=== PATIENT | male | born 1935 | race Caucasian/White ===

== ENCOUNTER 2016-04-10 07:12 | Emergency (ER) | payer OTHER, MEDICARE ==
[~2016-04-10] VITALS: Ht 186.7 cm; Wt 88.5 kg
[~2016-04-10 07:12] MED LIST: ASPIRIN EC81 M1 PO; ATORVASTATIN CA40 M1 PO; EFFIENT10 M1 PO; FISH OIL 1,0001 EACH PO; HEPARIN-1/25000 UNI1 IV; METOPROLOL SUCC25 M1 PO; NIASPAN1000 M1 PO; NTG 25 MG/25 MG/250 IV; SYNTHROID75 MCG PO; VITAMIN C500 M7 PO; ZETIA10 M1 PO
--- NOTE | 2016-04-10 07:22 | ED SKIN/ALLERGY COMPLAINT ---
History of Present Illness General Chief Complaint: General Adult Stated Complaint: BIOPSY DONE ON EXCESSIVE BLEEDING Source: patient Exam Limitations: no limitations Vital Signs & Intake/Output Vital Signs & Intake/Output Vital Signs Date Time Temp Pulse Resp B/P Pulse O2 O2 Flow FiO2 Ox Delivery Rate 04/10 0720 98 Room Air 04/10 0715 97.2 66 18 160/80 100 Room Air Allergies Coded Allergies: rosuvastatin (RASH 05/10/15) Reconcile Medications Alirocumab (Praluent Pen) 75 MG/ML PEN.INJCTR 1 INJ SC Q 2 WEEKS CHOLESTEROL (Reported) Ascorbic Acid (Vitamin C) 500 MG CAPSULE.ER 1 CAP PO DAILY SUPPLEMENT ( Reported) Aspirin (Ecotrin*) 81 MG TABLET.DR 1 TAB PO DAILY HEART HEALTH (Reported) Atorvastatin Calcium 40 MG TABLET 1 TAB PO QPM CHOLESTEROL (Reported) Ezetimibe (Zetia) 10 MG TABLET 1 TAB PO DAILY CHOLESTEROL (Reported) Levothyroxine Sodium (Synthroid) 75 MCG TABLET 1 TAB PO DAILY AC THYROID ( Reported) Metoprolol Succinate 25 MG TAB.ER.24H 1 TAB PO DAILY HEART (Reported) Niacin (Niaspan) 1,000 MG TAB.ER.24H 2 TAB PO QPM HEART (Reported) [place]-3 Fatty Acids/Fish Oil (Fish Oil 1,000 MG Capsule) 1 EACH CAPSULE 2 CAP PO DAILY SUPPLEMENT (Reported) Prasugrel HCl (Effient) 10 MG TABLET 1 TAB PO DAILY BLOOD THINNER (Reported) Triage Note: PT STATES THAT HE HAD A MOLE BIOPSIED ON THURSDAY ON HIS R [place] AND THAT HE HAS NOTED THERE HAS BEEN A LOT OF BLEEDING TO AREA. DENIES PAIN. PT NOTED WITH BANDAID TO THE AREA Triage Nurses Notes Reviewed? yes HPI: pt presents for eval of bleeding from a bx site after mole removal on . pt states has had excisional bx in past. the bleeding seems excessive. takes aspirin daily. no other c/o such as dizziness or chest pain. Past History Travel History Traveled to [place] past 21 day No Medical History Any Pertinent Medical History? 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 No Review of Systems Review of Systems Constitutional: Reports: no symptoms. EENTM: Reports: no symptoms. Respiratory: Reports: no symptoms. Cardiovascular: Reports: no symptoms. GI: Reports: no symptoms. Genitourinary: Reports: no symptoms. Musculoskeletal: Reports: no symptoms. Skin: Reports: see HPI. Neurological/Psychological: Reports: no symptoms. Hematologic/Endocrine: Reports: no symptoms. Immunologic/Allergic: Reports: no symptoms. All Other Systems: Reviewed and Negative Physical Exam Physical Exam General Appearance: see below Comments: Gen.: Well-nourished, well-developed, no acute respiratory distress. Head: Normocephalic, atraumatic.bx site without active bleeding. Eyes: Normal inspection bilaterally Ears: Normal inspection bilaterally Nose: Normal inspection Throat/mouth : Moist mucosa Neck: Supple, full range of motion, no goiter Lungs: Quiet respirations Back: Normal range of motion Extremities: Normal range of motion grossly, equal radial pulses, no cyanosis clubbing or edema Neurologic: Cranial nerves grossly intact, speech is clear Skin: warm and dry Psychiatric: Calm, cooperative, no apparent delusions or hallucinations Progress Differential Diagnosis: postprocedural bleeding Plan of Care: Wound care Comments: 04/10/2016 8:26:31 AM no further bleeding after silver nitrate cautery. Departure Departure Disposition: HOME OR SELF CARE Condition: Stable Clinical Impression Primary Impression: Bleeding from wound Referrals: PADMINI CARRILLO,ISIDRA Shah (PCP/Family) Additional Instructions: Return if any concerns or sudden worsening. Departure Forms: Customer Survey General Discharge Information
[2016-04-10] MEDS ORDERED: PRALUENT P75 MG/1 ML SC (07:48)
[2016-04-10 08:37] VITALS: BP 142/72
== END 2016-04-10 08:38 ==
LOC: ERH 07:12
DX: L76.21 Postprocedural hemorrhage of skin and subcutaneous tissue following a dermatologic procedure (principal)

== ENCOUNTER 2016-08-26 13:50 | Emergency (ER) | payer OTHER, MEDICARE ==
[~2016-08-26] VITALS: Ht 186.7 cm; Wt 90.7 kg
[~2016-08-26 13:50] MED LIST changes: +PRALUENT P75 MG/1 ML SC
--- NOTE | 2016-08-26 15:01 | ED GENERAL ADULT ---
History of Present Illness General Chief Complaint: Male Genitourinary Problems Stated Complaint: BLOOD IN URINE Source: patient Exam Limitations: no limitations Vital Signs & Intake/Output Vital Signs & Intake/Output Vital Signs Date Time Temp Pulse Resp B/P B/P Pulse O2 O2 Flow FiO2 Mean Ox Delivery Rate 08/26 1531 56 18 136/64 98 Room Air 08/26 1407 98.1 61 20 138/76 97 Room Air Room Air Allergies Coded Allergies: ranolazine (From RANEXA) (PSYCHIDELLIC VISIONS PER PT 08/26/16) rosuvastatin (RASH 05/10/15) Reconcile Medications Alirocumab (Praluent Pen) 75 MG/ML PEN.INJCTR 1 INJ SC Q 2 WEEKS CHOLESTEROL (Reported) Ascorbic Acid (Vitamin C) 500 MG CAPSULE.ER 1 CAP PO DAILY SUPPLEMENT ( Reported) Aspirin (Ecotrin*) 81 MG TABLET.DR 1 TAB PO DAILY HEART HEALTH (Reported) Atorvastatin Calcium 40 MG TABLET 1 TAB PO QPM CHOLESTEROL (Reported) Levothyroxine Sodium (Synthroid) 75 MCG TABLET 1 TAB PO DAILY AC THYROID ( Reported) Metoprolol Succinate 25 MG TAB.ER.24H 1 TAB PO DAILY HEART (Reported) Niacin (Niaspan) 1,000 MG TAB.ER.24H 2 TAB PO QPM HEART (Reported) Nitroglycerin (Nitro-Bid) 2 % OINT...G. 1 MARI TOP DAILY HEART (Reported) [place]-3 Fatty Acids/Fish Oil (Fish Oil 1,000 MG Capsule) 1 EACH CAPSULE 2 CAP PO DAILY SUPPLEMENT (Reported) Prasugrel HCl (Effient) 10 MG TABLET 1 TAB PO DAILY BLOOD THINNER (Reported) Ubidecarenone (Co Q-10) 50 MG CAPSULE 1 CAP PO DAILY SUPPLEMENT (Reported) Triage Note: PT TO ED WITH C/O BLOODY URINE TODAY "FELT FINE THIS AM, MOVED BOWELS FINE, NO PAIN". ON BABY ASA. Triage Nurses Notes Reviewed? yes Onset: Gradual Duration: day(s): (1) Timing: no prior history Injury Environment: home Severity: moderate No Modifying Factors: none Associated Symptoms: none HPI: Patient is a 80-year-old male presenting to the emergency department with chief complaint of bleeding from his penis that happened just prior to arrival. Patient reports that he was sitting down and had to urinate so he went to the bathroom, sat on the toilet and noticed that there was blood in his underwear. Patient denies any associated pain. Denies any abdominal pain. No nausea vomiting fevers or chills chest pain or shortness of breath. He does report remote history of smoking. No history of similar symptoms. Denies any urinary frequency urgency or dysuria. He did notice that when he provided a urine specimen here in the emergency department a small blood clot came out of his urethra. No pain associated with it. Denies taking anything at home to help with symptoms. Denies any weight changes. No recent travel. No sick contacts. Denies any trauma. (URI GALO) Past History Travel History Traveled to [place] past 21 day No Medical History Any Pertinent Medical History? 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 No (URI GALO) Review of Systems Review of Systems Constitutional: Reports: no symptoms. Comments Review of systems: See HPI, All other systems negative. Constitutional, no chills fever or weight loss HEENT: No visual changes no sore throat no congestion Cardiovascular: No chest pain ,palpitation , orthopnea or ankle swelling Skin, no jaundice no rashes Respiratory: No dyspnea cough sputum or hemoptysis GI: No nausea no vomiting : No dysuria Muscle skeletal: no back pain, no neck pain, Neurologic: No numbness no confusion no jackson Psych: No stress anxiety or depression,. Heme/endocrine: No bruising no bleeding no polyuria or polydipsia Immunology: No splenectomy or history of AIDS (URI GALO) Physical Exam Physical Exam General Appearance: well developed/nourished, no apparent distress, alert, awake , comfortable Comments: Well-developed well-nourished person in no acute distress HEENT: atruamatic. Nose is atraumatic. Neck: normal inspection Back: Nontender, no CVA tenderness. Cardiovascular: Regular rate and rhythms no murmurs rubs or gallops, normal JVP Respiratory: Chest nontender. No respiratory distress.breath sounds clear to auscultation bilaterally Abdomen: Soft, nontender nondistended, no appreciable organomegaly. Normal bowel sounds. No ascites, no rebound or gaurding. gu: Normal-appearing external genitalia, no tenderness to palpation over the penile shaft or penile meatus. There is a small abrasion approximately 5 mm in size noted on the inner aspect of the urethra at the 3 o'clock position. Nontender. No active bleeding. No rashes noted on the external genitalia, no tenderness to palpation over the testicles bilaterally. Extremity: No edema Neuro: Alert oriented x3 Skin: No appreciable rash on exposed skin, skin is warm and dry. Psych: Mood and affect is normal, memory and judgment is normal. Core Measures ACS in differential dx? No CVA/TIA Diagnosis: No Severe Sepsis Present: No Septic Shock Present: No (LALI ANDERSON,URI) Progress Differential Diagnoses I considered the following diagnoses in my evaluation of the patient: Bladder cancer, bladder stone, kidney stone, UTI, abrasion, acute kidney injury Plan of Care: Orders Procedure Date/time Status COMPREHENSIVE METABOLIC PANEL 08/26 1515 Complete CBC WITHOUT DIFFERENTIAL 08/26 1515 Complete URINALYSIS 08/26 1424 Complete Laboratory Tests 08/26/16 1531: Anion Gap 11, Estimated GFR > 60, BUN/Creatinine Ratio 13.3, Glucose 76, Calcium 9.2, Total Bilirubin 1.0, AST 52, ALT 37, Alkaline Phosphatase 79, Total Protein 6.6, Albumin 4.2, Globulin 2.4, Albumin/Globulin Ratio 1.8, CBC w Diff NO MAN DIFF REQ, RBC 4.23 L, MCV 97.9 H, MCH 32.2 H, RDW 13.8, MPV 7.0 L, Gran % 48.2, Lymphocytes % 42.1, Monocytes % 8.1, Eosinophils % 1.3, Basophils % 0.3, Absolute Granulocytes 3.7, Absolute Lymphocytes 3.2, Absolute Monocytes 0.6, Absolute Eosinophils 0.1, Absolute Basophils 0, PUBS MCHC 32.9 L 08/26/16 1425: Urine Color YEL, Urine Clarity CLEAR, Urine pH 6.0, Ur Specific [place] <= 1.005 , Urine Protein NEG, Urine Ketones NEG, Urine Nitrite NEG, Urine Bilirubin NEG, Urine Urobilinogen 0.2, Ur Leukocyte Esterase NEG, Ur Microscopic SEDIMENT EXAMINED, Urine RBC 5-10 H, Urine WBC RARE, Ur Epithelial Cells RARE, Urine Bacteria RARE H, Urine Hemoglobin LARGE H, Urine Glucose NEG Diagnostic Imaging: Viewed by Me: CT Scan. Discussed w/RAD: CT Scan. Radiology Impression: PATIENT: VENTURA LPOES PRESENT AGE: 80 PATIENT ACCOUNT NO: [id number] : 37 LOCATION: [facility] ORDERING PHYSICIAN: URI ANDERSON SERVICE DATE: 08/26/16 EXAM TYPE: CAT - CT ABD & PELVIS W/O IV CONTRAS EXAMINATION: CT ABDOMEN AND PELVIS WITHOUT CONTRAST CLINICAL INFORMATION: Hematuria. Rule out kidney stones, bladder abnormality. COMPARISON: None TECHNIQUE: Multidetector volumetric imaging was performed from the superior aspect of the liver through the pubic symphysis. Sagittal and coronal reformatted images were obtained on the technologist's workstation. FINDINGS: LUNG BASES: Mild bibasilar atelectasis/ scarring. LIVER, GALLBLADDER, AND BILIARY TREE: 0.8 cm hypodense liver lesion, too small to characterize. There is a faint density in the lateral fundus, which may reflect small gallstones or sludge no evidence of gallbladder wall thickening, or obvious pericholecystic inflammatory changes. PANCREAS: Unremarkable. SPLEEN: Unremarkable. ADRENAL GLANDS: Unremarkable. KIDNEYS AND URETERS: RIGHT KIDNEY: No suspicious lesions identified. No evidence of calculi. Extrarenal pelvis. No ureteral calculi are seen. LEFT KIDNEY: There is a 1.6 cm hypodense lesion, Hounsfield 13, probable cyst. There is a 3 mm calcification in the peripheral inferior aspect of the left kidney, which may reflect a nonobstructing calculus or perhaps an area of dystrophic calcification, without definite lesion evident by CT. Left extrarenal pelvis is noted. No ureteral calculus is seen. BLADDER: Bladder appears unremarkable. No evidence of wall thickening or calculi. GASTROINTESTINAL TRACT: Scattered colonic diverticuli. No evidence of diverticulitis. Normal caliber small bowel loops. Small hiatal hernia. The stomach is nondistended. No evidence of free air or free fluid. ABDOMINAL WALL: Small right fat-containing inguinal hernia. LYMPH NODES: No pathologically enlarged lymph nodes are seen in the retroperitoneum, mesentery, pelvis. VASCULAR: Moderate atherosclerotic vascular disease. Normal caliber aorta. PELVIC VISCERA: Few prostate calcifications are noted. Prostate is enlarged measuring 5.4 cm transverse. Seminal vesicles are symmetric. OSSEOUS STRUCTURES: Multilevel degenerative changes in the spine. IMPRESSION: 1. Left renal 1.6 cm hypodense lesion, probable cyst. There is a 3 mm peripheral calcification in the inferior pole of the left kidney. Etiology of the hematuria has not been determined. Recommend urological consultation, for further evaluation/imaging as clinically warranted. 2. Hepatic lesion measuring 0.8 cm, too small to characterize by CT.. 3. Possible sludge or small gallstones. If there are symptoms attributable to the right upper quadrant, further evaluation with ultrasound can be obtained. 4. Colonic diverticulosis. No evidence of diverticulitis. 5. Additional findings and details in the body of report. DICTATED BY: CLIF BROOKS MD DATE/TIME DICTATED:08/26/161618 FRAME BUILDER:PING DATE/TIME TRANSCRIBED:08/26/161618 Initial ED EKG: none (LALI ANDERSON,URI) Departure Departure Time of Disposition: 1703 Disposition: HOME OR SELF CARE Condition: Stable Clinical Impression Primary Impression: Hematuria Qualifiers: Hematuria type: unspecified type Qualified Code: R31.9 - Hematuria, unspecified Referrals: PADMINI CARRILLO,ISIDRA Shah (PCP/Family) Additional Instructions: Follow-up with urology call to make an appointment. Return for worsening symptoms or concerns. Increase fluid intake. PATIENT: VENTURA LOPES PRESENT AGE: 80 PATIENT ACCOUNT NO: [id number] : 37 LOCATION: [facility] ORDERING PHYSICIAN: URI ANDERSON SERVICE DATE: 08/26/16 EXAM TYPE: CAT - CT ABD & PELVIS W/O IV CONTRAS EXAMINATION: CT ABDOMEN AND PELVIS WITHOUT CONTRAST CLINICAL INFORMATION: Hematuria. Rule out kidney stones, bladder abnormality. COMPARISON: None TECHNIQUE: Multidetector volumetric imaging was performed from the superior aspect of the liver through the pubic symphysis. Sagittal and coronal reformatted images were obtained on the technologist's workstation. FINDINGS: LUNG BASES: Mild bibasilar atelectasis/scarring. LIVER, GALLBLADDER, AND BILIARY TREE: 0.8 cm hypodense liver lesion, too small to characterize. There is a faint density in the lateral fundus, which may reflect small gallstones or sludge no evidence of gallbladder wall thickening, or obvious pericholecystic inflammatory changes. PANCREAS: Unremarkable. SPLEEN: Unremarkable. ADRENAL GLANDS: Unremarkable. KIDNEYS AND URETERS: RIGHT KIDNEY: No suspicious lesions identified. No evidence of calculi. Extrarenal pelvis. No ureteral calculi are seen. LEFT KIDNEY: There is a 1.6 cm hypodense lesion, Hounsfield 13, probable cyst. There is a 3 mm calcification in the peripheral inferior aspect of the left kidney, which may reflect a nonobstructing calculus or perhaps an area of dystrophic calcification, without definite lesion evident by CT. Left extrarenal pelvis is noted. No ureteral calculus is seen. BLADDER: Bladder appears unremarkable. No evidence of wall thickening or calculi. GASTROINTESTINAL TRACT: Scattered colonic diverticuli. No evidence of diverticulitis. Normal caliber small bowel loops. Small hiatal hernia. The stomach is nondistended. No evidence of free air or free fluid. ABDOMINAL WALL: Small right fat-containing inguinal hernia. LYMPH NODES: No pathologically enlarged lymph nodes are seen in the retroperitoneum, mesentery, pelvis. VASCULAR: Moderate atherosclerotic vascular disease. Normal caliber aorta. PELVIC VISCERA: Few prostate calcifications are noted. Prostate is enlarged measuring 5.4 cm transverse. Seminal vesicles are symmetric. OSSEOUS STRUCTURES: Multilevel degenerative changes in the spine. IMPRESSION: 1. Left renal 1.6 cm hypodense lesion, probable cyst. There is a 3 mm peripheral calcification in the inferior pole of the left kidney. Etiology of the hematuria has not been determined. Recommend urological consultation, for further evaluation/imaging as clinically warranted. 2. Hepatic lesion measuring 0.8 cm, too small to characterize by CT.. 3. Possible sludge or small gallstones. If there are symptoms attributable to the right upper quadrant, further evaluation with ultrasound can be obtained. 4. Colonic diverticulosis. No evidence of diverticulitis. 5. Additional findings and details in the body of report. DICTATED BY: CLIF BROOKS MD DATE/TIME DICTATED:08/26/161618 FRAME BUILDER:RAD.TYLER DATE/TIME TRANSCRIBED:08/26/169 CONFIDENTIAL, DO NOT COPY WITHOUT APPROPRIATE AUTHORIZATION. <Electronically signed in Other Vendor System> Departure Forms: Customer Survey General Discharge Information (URI GALO) PA/ENVIRONMENTAL COMPLIANCE INSPECTOR Co-Sign Statement Statement: ED Attending supervision documentation- x I saw and evaluated the patient. I have also reviewed all the pertinent lab results and diagnostic results. I agree with the findings and the plan of care as documented in the PA's/ENVIRONMENTAL COMPLIANCE INSPECTOR's documentation. [] I have reviewed the ED Record and agree with the PA's/ENVIRONMENTAL COMPLIANCE INSPECTOR's documentation. [] Additions or exceptions (if any) to the PAs/ENVIRONMENTAL COMPLIANCE INSPECTOR's note and plan are summarized below: [] (SHERIDAN CARRILLO,RAMAKRISHNA) Critical Care Note Critical Care Note Critical Care Time: non-applicable (URI GALO)
[2016-08-26 15:46] LABS: ABSOLUTE BASOPHIL COUNT 0 /CUMM (0.0-0.2); ABSOLUTE EOSINOPHIL COUNT 0.1 /CUMM (0.0-0.7); ABSOLUTE GRANULOCYTE CT 3.7 /CUMM (1.4-6.5); ABSOLUTE LYMPH COUNT 3.2 /CUMM (1.2-3.4); ABSOLUTE MONOCYTE COUNT 0.6 /CUMM (0.10-0.60); BASOPHIL % 0.3 % (0.0-2.0); EOSINOPHIL % 1.3 % (0-5); GRANULOCYTE % 48.2 % (42.2-75.2); HEMATOCRIT 41.4 % (42-52); MEAN CORPUSCULAR HGB 32.2 PG (27.0-31.0); MEAN CORPUSCULAR HGB CONC 32.9 G/DL (33.0-37.0); MEAN CORPUSCULAR VOLUME 97.9 FL (80.0-94.0); PLATELET COUNT 200 /CUMM (130-400); RBC DISTRIBUTION WIDTH 13.8 % (11.5-14.5); RED BLOOD CELL CT 4.23 /CUMM (4.70-6.10); WHITE BLOOD CELL COUNT 7.6 /CUMM (4.8-10.8)
--- NOTE | 2016-08-26 16:54 | CT SCAN REPORT ---
EXAMINATION: CT ABDOMEN AND PELVIS WITHOUT CONTRAST CLINICAL INFORMATION: Hematuria. Rule out kidney stones, bladder abnormality. COMPARISON: None TECHNIQUE: Multidetector volumetric imaging was performed from the superior aspect of the liver through the pubic symphysis. Sagittal and coronal reformatted images were obtained on the technologist's workstation. FINDINGS: LUNG BASES: Mild bibasilar atelectasis/scarring. LIVER, GALLBLADDER, AND BILIARY TREE: 0.8 cm hypodense liver lesion, too small to characterize. There is a faint density in the lateral fundus, which may reflect small gallstones or sludge no evidence of gallbladder wall thickening, or obvious pericholecystic inflammatory changes. PANCREAS: Unremarkable. SPLEEN: Unremarkable. ADRENAL GLANDS: Unremarkable. KIDNEYS AND URETERS: RIGHT KIDNEY: No suspicious lesions identified. No evidence of calculi. Extrarenal pelvis. No ureteral calculi are seen. LEFT KIDNEY: There is a 1.6 cm hypodense lesion, Hounsfield 13, probable cyst. There is a 3 mm calcification in the peripheral inferior aspect of the left kidney, which may reflect a nonobstructing calculus or perhaps an area of dystrophic calcification, without definite lesion evident by CT. Left extrarenal pelvis is noted. No ureteral calculus is seen. BLADDER: Bladder appears unremarkable. No evidence of wall thickening or calculi. GASTROINTESTINAL TRACT: Scattered colonic diverticuli. No evidence of diverticulitis. Normal caliber small bowel loops. Small hiatal hernia. The stomach is nondistended. No evidence of free air or free fluid. ABDOMINAL WALL: Small right fat-containing inguinal hernia. LYMPH NODES: No pathologically enlarged lymph nodes are seen in the retroperitoneum, mesentery, pelvis. VASCULAR: Moderate atherosclerotic vascular disease. Normal caliber aorta. PELVIC VISCERA: Few prostate calcifications are noted. Prostate is enlarged measuring 5.4 cm transverse. Seminal vesicles are symmetric. OSSEOUS STRUCTURES: Multilevel degenerative changes in the spine. IMPRESSION: 1. Left renal 1.6 cm hypodense lesion, probable cyst. There is a 3 mm peripheral calcification in the inferior pole of the left kidney. Etiology of the hematuria has not been determined. Recommend urological consultation, for further evaluation/imaging as clinically warranted. 2. Hepatic lesion measuring 0.8 cm, too small to characterize by CT.. 3. Possible sludge or small gallstones. If there are symptoms attributable to the right upper quadrant, further evaluation with ultrasound can be obtained. 4. Colonic diverticulosis. No evidence of diverticulitis. 5. Additional findings and details in the body of report.
[2016-08-26] MEDS ORDERED: CO Q-1050 M1 PO (17:02)
[2016-08-26] MEDS ORDERED: NITRO-BID1 GM TOP (17:03)
[2016-08-26 17:33] VITALS: BP 134/68
== END 2016-08-26 17:34 ==
LOC: ERH 13:50
PROVIDERS: Physician Assistant
DX: R31.9 Hematuria, unspecified (principal)
CPT/HCPCS: 74176; 81001